=== PATIENT | female | born 1970 | race Caucasian/White ===

== ENCOUNTER 2021-06-22 12:50 | Emergency (ER) | payer OTHER, MEDICARE | END 2021-06-22 17:25 | disposition home or self-care (01) | LOC: FER 12:50 | DX: D86.9 Sarcoidosis, unspecified (principal); G43.909 Migraine, unspecified, not intractable, without status migrainosus; E11.9 Type 2 diabetes mellitus without complications; Z88.8 Allergy status to other drugs, medicaments and biological substances; Z88.6 Allergy status to analgesic agent; Z88.4 Allergy status to anesthetic agent | CPT/HCPCS: 96372; J1100; J1200; J1642; J1885; J2405; J3030; J3475; J7030 ==